=== PATIENT | female | born 1950 | race Caucasian/White ===

== ENCOUNTER 2022-07-19 14:30 | Outpatient (CLI) | payer OTHER ==
--- NOTE | 2022-07-20 10:22 | Mammography Report ---
BILATERAL DIGITAL SCREENING MAMMOGRAM 3D/2D: 07/19/2022 CLINICAL: Routine screening. Comparison is made to exams dated: 06/29/2015 mammogram, 07/04/2013 mammogram, and 05/23/2010 mammogram - [facility]. Both breasts are heterogeneously dense, which may obscure small masses (category c / 51-75% glandular tissue). No significant masses, calcifications, or other findings are seen in either breast. There has been no significant interval change. IMPRESSION: NEGATIVE There is no mammographic evidence of malignancy. A 1 year screening mammogram is recommended. Based on the Tyrer Cuzick model (a risk assessment model) the patients lifetime risk is 7.3% and her 10 year risk is 4.7%. According to the ACR, ACS, and NCCN guidelines, an annual breast MRI exam basil g with mammogram is recommended if the patients lifetime risk is 20% or greater. This exam was interpreted at Station ID: [id number]. NOTE: For mammograms, a report in lay terms will be sent to the patient. Approximately 15% of breast malignancies will not be visualized mammographically. In the management of a palpable breast mass, a negative mammogram must not discourage biopsy of a clinically suspicious lesion. Electronically Signed By: Tim stephens/[email or web address]:07/19/2022 15:49:03 letter sent: No_Letter ACR BI-RADS Category 1: Negative 3341F PARENCHYMAL PATTERN: (D) - The breast(s) demonstrate(s) heterogeneously dense fibroglandular verona castillo. BI-RADS CATEGORY: (1) - 1 Mammogram [id number] 1 year screening LATERALITY: (B)
== END 2022-07-19 14:31 | disposition home or self-care (01) ==
LOC: DI 14:30
PROVIDERS: ATTEND Internal Medicine
DX: Z12.31 Encounter for screening mammogram for malignant neoplasm of breast (principal)

== ENCOUNTER 2023-04-18 07:20 | Day surgery (SDC) | payer MEDICARE, OTHER ==
[2023-04-18] MEDS ORDERED: LACTATED RINGERS 1,000 ML IV ONE ×2 (07:23→09:01)
--- NOTE | 2023-04-18 08:09 | ANESTHESIA ---
Pre-Anesthesia VS, & Labs - Diagnosis screening - Procedure colonoscopy Vital Signs: Temp Pulse Resp BP Pulse Ox O2 Flow Rate 36.3 C L 58 L 16 141/93 H 100 04/18/23 07:23 04/18/23 07:23 04/18/23 07:23 04/18/23 07:23 04/18/23 07:23 Height: 5 ft 7 in Weight (kg): 61.8 kg Body Mass Index: 21.3 BMI Classification: Normal - NPO >8 hours Last Fluid Intake: am prep - Is Patient ?: No - Lab Results Lab results reviewed: Yes Home Medications and Allergies Lansoprazole [Prevacid] 30 mg PO PRN PRN 09/15/13 Allergies/Adverse Reactions: Allergies Allergy/AdvReac Type Severity Reaction Status Date / Time No Known Drug Allergies Allergy Verified 04/18/23 07:40 Anes History & Medical History - Anesthetic History Anesthesia Complications: reports: No previous complications Family history of Anesthesia Complications: Denies Family history of Malignant Hyperthermia: Denies - Medical History Cardiovascular: reports: None Pulmonary: reports: None Gastrointestinal: reports: GERD, Hemorrhoids Urinary: reports: None Musculoskeletal: reports: None Endocrine/Autoimmune: reports: None Skin: reports: None Smoking Status: Never smoker History of Cancer?: No - Surgical History General: reports: Colonoscopy (10 years ago) Orthopedic: reports: Other (R humerus as adult, B feet as a child) Exam General: Alert, Oriented x3, Cooperative Dental: WNL, Other (temp crown at upper right) Mouth Openin Fingerbreadth Neck Mobility: Normal Mallampati classification: III Thyromental Distance: 4-6 cm Respiratory: Lungs clear, Normal breath sounds, No respiratory distress Cardiovascular: Regular rate Neurological: Normal speech Mental/Cognitive Status: Alert/Oriented X3, Normal for patient Cognitive Status: Within normal limits Plan Anesthesia Type: Total IV Consent for Procedure(s) Verified and Reviewed: Yes Code Status: Attempt Resuscitation ASA classification: 2-Mild systemic disease Is this case an emergency?: No
[2023-04-18] MEDS ORDERED: PROPOFOL 500 MG/50 ML 500 MG/50 ML VIAL ONE (08:20)
[2023-04-18 09:23] VITALS: BP 105/84; O2SAT 100
--- NOTE | 2023-04-18 09:40 | ANESTHESIA POST OP EVALUATION ---
Anesthesia Post Eval - Post Anesthesia Eval Vitals: Last Vital Signs Temp 36.3 C L 04/18/23 09:17 Pulse 80 04/18/23 09:17 Resp 14 04/18/23 09:17 BP 105/84 H 04/18/23 09:17 Pulse Ox 100 04/18/23 09:17 O2 Flow Rate CV Function Including HR & BP: Stable Pain Control: Satisfactory Nausea & Vomiting: Negative Mental Status: Baseline Respiratory Status: Airway Patent Hydration Status: Satisfactory Anesthesia Complications: None
== END 2023-04-18 07:21 | disposition home or self-care (01) ==
LOC: SDS 07:20
PROVIDERS: ATTEND Surgery
DX: Z12.11 Encounter for screening for malignant neoplasm of colon (principal); K57.30 Diverticulosis of large intestine without perforation or abscess without bleeding; K64.1 Second degree hemorrhoids
CPT/HCPCS: G0121; J7120

== ENCOUNTER 2024-01-11 14:22 | Outpatient (CLI) | payer MEDICARE ==
--- NOTE | 2024-01-11 17:00 | XRAY Report ---
PROCEDURE: Lumbar Spine 2-3V INDICATIONS: FALL TECHNIQUE: 2 views of the lumbar spine were acquired. COMPARISON: None. FINDINGS: Surgical change: None. Bones: 5 [id number] vertebrae are present. 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 Tsiw-ys-tlzfbysh multilevel degenerative changes with osteophytosis, disc height lo ss and facet arthropathy. No vertebral body compression fractures. No suspicious bony lesions. Soft tissues: Overlying bowel gas pattern is normal. No suspicious soft tissue calcifications. IMPRESSION: 1.No acute fracture or traumatic subluxation. 2.Dckz-zl-wlwegjnt multilevel degenerative changes of the spine. Reviewed by: Cira Fernandez MD on 01/11/2024 3:58 PM SMITHA Approved by: Cira Fernandez MD on 01/11/2024 3:58 PM SMITHA Station ID: [id number]
--- NOTE | 2024-01-11 18:38 | XRAY Report ---
PROCEDURE: Foot 3+V LT INDICATIONS: FALL TECHNIQUE: 3 views of the foot were acquired. COMPARISON: None. FINDINGS: Bones: No fractures or dislocations. There is moderate mid foot degeneration. No suspicious bony les ions. Soft tissues: No tibiotalar joint effusion. Achilles tendon appears normal. IMPRESSION: No acute bony abnormality. If pain persists with conservative management, consider repeat x-ray in 10 -14 days or cross-sectional imaging. Reviewed by: Ezequiel Comer MD on 01/11/2024 6:36 PM PDT Approved by: Ezequiel Comer MD on 01/11/2024 6:36 PM PDT Station ID: [id number]
--- NOTE | 2024-01-11 18:42 | XRAY Report ---
PROCEDURE: Ankle 3+V LT INDICATIONS: FALL TECHNIQUE: 3 views of the ankle were acquired. COMPARISON: None. FINDINGS: Bones: No fractures or dislocations. Ankle mortise is normally aligned. No suspicious bony lesions . Soft tissues: No tibiotalar joint effusion. Achilles tendon appears normal. IMPRESSION: No acute bony abnormality. If pain persists with conservative management, consider repeat x-ray in 10 -14 days or cross-sectional imaging. Reviewed by: Ezequiel Comer MD on 01/11/2024 6:40 PM PDT Approved by: Ezequiel Comer MD on 01/11/2024 6:40 PM PDT Station ID: [id number]
--- NOTE | 2024-01-12 06:25 | XRAY Report ---
PROCEDURE: Knee 2V LT INDICATIONS: Fall TECHNIQUE: 2 views of the knee(s) were acquired. COMPARISON: None. FINDINGS: Bones: Mild degenerative changes, with slight medial joint space loss. No acute displaced fracture id entified. Soft tissues: Small joint effusion. IMPRESSION: No acute radiographic abnormality. Small joint effusion and mild medial joint space narrowing. If the re is high concern for further derangement, consider MRI evaluation. Reviewed by: Tim Tijerina MD on 01/12/2024 6:24 AM PDT Approved by: Tim Tijerina MD on 01/12/2024 6:24 AM PDT Station ID: [id number]
--- NOTE | 2024-01-12 06:26 | XRAY Report ---
PROCEDURE: Tib/Fib LT INDICATIONS: FALL TECHNIQUE: 2 views of the tibia and fibula were acquired. COMPARISON: None. FINDINGS: Bones: No acute displaced fracture of the tibial shaft or fibular shaft. Tibial tuberosity enthesopa thy. Soft tissues: No suspicious calcifications. IMPRESSION: No acute radiographic abnormality. If there is high concern for occult injury, consider repeat radiog dejon or cross-sectional imaging. Reviewed by: Tim Tijerina MD on 01/12/2024 6:25 AM PDT Approved by: Tim Tijerina MD on 01/12/2024 6:25 AM PDT Station ID: [id number]
--- NOTE | 2024-01-12 06:27 | XRAY Report ---
PROCEDURE: Hip w/Pelvis 2-3V LT INDICATIONS: FALL TECHNIQUE: 2 views of the hip were acquired. COMPARISON: None. FINDINGS: Bones: Mild bilateral hip arthrosis. No acute displaced fracture or dislocation. The pelvic ring tamara ears intact. Soft tissues: Possible calcific tendinopathy at the greater trochanters. There are presumed pelvic p hleboliths. Possible dystrophic calcification in the left lateral thigh subcutaneous tissues. IMPRESSION: Mild degenerative changes without acute radiographic abnormality. If there is high concern for occult injury, consider repeat radiography or cross-sectional imaging. Reviewed by: Tim Tijerina MD on 01/12/2024 6:26 AM PDT Approved by: Tim Tijerina MD on 01/12/2024 6:26 AM PDT Station ID: [id number]
== END 2024-01-11 14:23 | disposition home or self-care (01) ==
LOC: DI 14:22
DX: M47.816 Spondylosis without myelopathy or radiculopathy, lumbar region (principal); M25.462 Effusion, left knee; M17.12 Unilateral primary osteoarthritis, left knee; M76.892 Other specified enthesopathies of left lower limb, excluding foot; M16.0 Bilateral primary osteoarthritis of hip; M43.9 Deforming dorsopathy, unspecified; Z91.81 History of falling